=== PATIENT | male | born 1985 | race Caucasian/White ===

== ENCOUNTER 2020-07-12 13:53 | Observation (INO) | payer OTHER ==
[~2020-07-12] VITALS: Ht 175.3 cm; Wt 74.6 kg
[~2020-07-12 13:53] MED LIST: ONDN4T PO; TRM50T PO
[2020-07-12] MEDS ORDERED: LACTATED RINGERS 1,000 ML IV ONE (14:05)
[2020-07-12 14:26] LABS: BASOPHILS % (AUTO) 0 % (0-10); EOSINOPHILS % (AUTO) 0 % (0-10); HEMATOCRIT 44 % (40-54); HEMOGLOBIN 15.2 G/DL (13.3-17.7); LYMPHOCYTES # (AUTO) 1.6 X 10^3 (1.0-4.0); LYMPHOCYTES % (AUTO) 11 % (12-44); MEAN CORPUSCULAR HEMOGLOBIN 30 PG (25-34); MEAN CORPUSCULAR HGB CONC 35 G/DL (32-36); MEAN CORPUSCULAR VOLUME 85 FL (80-99); MEAN PLATELET VOLUME 9.8 FL (7.4-10.4); MONOCYTES # (AUTO) 1.6 X 10^3 (0.0-1.0); MONOCYTES % (AUTO) 11 % (0-12); NEUTROPHILS # (AUTO) 11.2 X 10^3 (1.8-7.8); NEUTROPHILS % (AUTO) 78 % (42-75); PLATELET COUNT 259 10^3/uL (130-400); WHITE BLOOD COUNT 14.4 10^3/uL (4.3-11.0)
[2020-07-12 14:37] LABS: ALBUMIN 4.2 GM/DL (3.2-4.5); CHLORIDE 107 MMOL/L (98-107); SODIUM 142 MMOL/L (135-145)
[2020-07-12 14:38] LABS: CALCIUM 9.1 MG/DL (8.5-10.1)
[2020-07-12 14:40] LABS: GLUCOSE 71 MG/DL (70-105)
[2020-07-12 14:41] LABS: BILIRUBIN,TOTAL 0.9 MG/DL (0.1-1.0); CARBON DIOXIDE 18 MMOL/L (21-32)
--- NOTE | 2020-07-12 14:42 | ED General ---
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 PT IS ABLE TO FOLLOW SOME COMMANDS BUT THEN FALLS ASLEEP WITH OUT STIMULATION Nursing Sepsis Screen: No Definite Risk Source of Information: Patient, EMS, Police Exam Limitations: No Limitations History of Present Illness Date Seen by Provider: Jul 12, 2020 Time Seen by Provider: 13:55 Initial Comments Here by EMS. Apparently patient has been running from the police since 7 AM this morning. He apparently was in a car rebecca and then ran from the car. EMS reports that he ran approximately 2-3 miles before finally being captured. This took several hours. At some point while running from the police he apparently ingested approximately 3 g of methamphetamine. Patient states that he chewed up the bag he had they were in and swallowed it but not the baggy. Heart rate on arrival right at 100. Patient apparently has some pseudoseizure or seizure history and syncope history. Patient reports only ingesting methamphetamine. Timing/Duration: 4-6 Hours Severity: Moderate Associated Systoms: No Chest Pain, No Cough, No Fever/Chills, No Nausea/Vomiting; Shortness of Air, Weakness Allergies and Home Medications Allergies Coded Allergies: Bupropion (Verified Allergy, Unknown, 05/13/06) Home Medications Ondansetron Hcl 4 Mg Tab, 1 TAB PO Q4H Prescribed by: ANA KILLIAN on 09/29/131751 Tramadol Hcl 50 Mg Tab, 50 MG PO Q4H Prescribed by: ANA KILLIAN on 09/29/131751 Patient Home Medication List Home Medication List Reviewed: Yes Review of Systems Review of Systems Constitutional: see HPI; No chills, No fever EENTM: no symptoms reported Respiratory: No cough, No short of breath Cardiovascular: No chest pain, No edema Gastrointestinal: No abdominal pain, No nausea, No vomiting Genitourinary: no symptoms reported Musculoskeletal: muscle pain, muscle weakness Skin: no symptoms reported Psychiatric/Neurological: Anxiety, Weakness All Other Systems Reviewed Negative Unless Noted: Yes Past Pmhfthy-Wrprex-Nsdjhl Hx Past Med/Social Hx: Reviewed Nursing Past Med/Soc Hx Patient Social History Alcohol Use: Denies Use Recreational Drug Use: Yes Drug of Choice: meth, Smoking Status: Current Everyday Smoker Type Used: Cigarettes Recent Foreign Travel: No Contact w/Someone Who Travel: No Recent Infectious Disease Expo: No Physical Abuse: No Sexual Abuse: No Mistreated: No Fear: No Past Medical History Surgeries: No Respiratory: No Cardiac: No Neurological: Yes Reproductive Disorders: No Sexually Transmitted Disease: No Gastrointestinal: No Musculoskeletal: No Endocrine: No Cancer: No Psychosocial: No Blood Disorders: No Family Medical History Reviewed Nursing Family Hx No Pertinent Family Hx Physical Exam Vital Signs Vital Signs - First Documented 07/12/20 14:03 Temp 37.2 Pulse 105 Resp 20 B/P (MAP) 125/97 (106) Pulse Ox 100 Capillary Refill : Less Than 3 Seconds Height, Weight, BMI Height: 5'10" Weight: 155lbs. oz. 70.012315eu; 26.00 BMI Method:Estimated General Appearance: No Apparent Distress, WD/WN HEENT: PERRL/EOMI, Pharynx Normal Neck: Non Tender, Supple Respiratory: Lungs Clear, No Respiratory Distress Cardiovascular: No Murmur, Tachycardia Gastrointestinal: Non Tender, Soft Extremity: Normal Range of Motion, Other (reports tenderness to the left hand intermittently then out at other times.) Neurologic/Psychiatric: Alert, Oriented x3 Skin: Warm/Dry, Other (multiple scattered superficial abrasions to the arms and legs) Progress/Results/Core Measures Suspected Sepsis Recent Fever Within 48 Hours: No Infection Criteria Present: None New/Unexplained Altered Menta: No Sepsis Screen: No Definite Risk SIRS Temperature: Pulse: 105 Respiratory Rate: 20 Laboratory Tests 07/12/20 13:57: White Blood Count 14.4H Blood Pressure 125 /97 Mean: 106 Laboratory Tests 07/12/20 13:57: Creatinine 1.30, Platelet Count 259, Total Bilirubin 0.9 Results/Orders Lab Results Laboratory Tests Test 07/12/20 13:57 07/12/20 14:57 Range/Units White Blood Count 14.4 H 4.3-11.0 10^3/uL Red Blood Count 5.13 4.35-5.85 10^6/uL Hemoglobin 15.2 13.3-17.7 G/DL Hematocrit 44 40-54 % Mean Corpuscular Volume 85 80-99 FL Mean Corpuscular Hemoglobin 30 25-34 PG Mean Corpuscular Hemoglobin Concent 35 32-36 G/DL Red Cell Distribution Width 12.4 10.0-14.5 % Platelet Count 259 130-400 10^3/uL Mean Platelet Volume 9.8 7.4-10.4 FL Neutrophils (%) (Auto) 78 H 42-75 % Lymphocytes (%) (Auto) 11 L 12-44 % Monocytes (%) (Auto) 11 0-12 % Eosinophils (%) (Auto) 0 0-10 % Basophils (%) (Auto) 0 0-10 % Neutrophils # (Auto) 11.2 H 1.8-7.8 X 10^3 Lymphocytes # (Auto) 1.6 1.0-4.0 X 10^3 Monocytes # (Auto) 1.6 H 0.0-1.0 X 10^3 Eosinophils # (Auto) 0.0 0.0-0.3 10^3/uL Basophils # (Auto) 0.0 0.0-0.1 10^3/uL Sodium Level 142 135-145 MMOL/L Potassium Level 4.0 3.6-5.0 MMOL/L Chloride Level 107 98-107 MMOL/L Carbon Dioxide Level 18 L 21-32 MMOL/L Anion Gap 17 H 5-14 MMOL/L Blood Urea Nitrogen 22 H 7-18 MG/DL Creatinine 1.30 0.60-1.30 MG/DL Estimat Glomerular Filtration Rate > 60 BUN/Creatinine Ratio 17 Glucose Level 71 70-105 MG/DL Calcium Level 9.1 8.5-10.1 MG/DL Corrected Calcium 8.9 8.5-10.1 MG/DL Total Bilirubin 0.9 0.1-1.0 MG/DL Aspartate Amino Transf (AST/SGOT) 59 H 5-34 U/L Alanine Aminotransferase (ALT/SGPT) 29 0-55 U/L Alkaline Phosphatase 72 40-136 U/L Total Creatine Kinase 3315 H 30-200 U/L Total Protein 7.0 6.4-8.2 GM/DL Albumin 4.2 3.2-4.5 GM/DL Salicylates Level < 5.0 L 5.0-20.0 MG/DL Acetaminophen Level < 10 L 10-30 UG/ML Serum Alcohol < 10 <10 MG/DL Urine Opiates Screen NEGATIVE NEGATIVE Urine Oxycodone Screen NEGATIVE NEGATIVE Urine Methadone Screen NEGATIVE NEGATIVE Urine Propoxyphene Screen NEGATIVE NEGATIVE Urine Barbiturates Screen NEGATIVE NEGATIVE Ur Tricyclic Antidepressants Screen NEGATIVE NEGATIVE Urine Phencyclidine Screen NEGATIVE NEGATIVE Urine Amphetamines Screen POSITIVE H NEGATIVE Urine Methamphetamines Screen POSITIVE H NEGATIVE Urine Benzodiazepines Screen NEGATIVE NEGATIVE Urine Cocaine Screen NEGATIVE NEGATIVE Urine Cannabinoids Screen NEGATIVE NEGATIVE My Orders Orders - MIYA GAITAN MD Acetaminophen (07/12/20 14:05) Alcohol (07/12/20 14:05) Cbc With Automated Diff (07/12/20 14:05) Comprehensive Metabolic Panel (07/12/20 14:05) Creatine Kinase (07/12/20 14:05) Drug Screen Stat (Urine) (07/12/20 14:05) Salicylate (07/12/20 14:05) Ua Culture If Indicated (07/12/20 14:05) Ed Iv/Invasive Line Start (07/12/20 14:05) Lactated Ringers (Lr 1000 Ml Iv Solution (07/12/20 14:05) Ekg Tracing (07/12/20 14:05) Chest 1 View, Ap/Pa Only (07/12/20 14:05) Abdomen/Kub 1view (07/12/20 14:05) Manual Differential (07/12/20 13:57) Chlamydia Trachomatis Urine (07/12/20 15:31) Neis Kevin Dna Urine Test (07/12/20 15:31) Ceftriaxone 1 Gram Ivp (07/12/20 15:31) Azithromycin Tablet (Zithromax Tablet) (07/12/20 15:31) Vital Signs/I&O 07/12/20 14:03 Temp 37.2 Pulse 105 Resp 20 B/P (MAP) 125/97 (106) Pulse Ox 100 Capillary Refill : Less Than 3 Seconds Blood Pressure Mean: 106 Progress Note : Progress Note Seen and evaluated on arrival by EMS. Patient is complaining of left wrist pain and right leg pain. Complains of being thirsty and very short of breath. Poison control was contacted on him previously and they are recommending monitoring for sympathomimetic effects of methamphetamine including tachycardia and hyperthermia. Supportive care indicated. IV by EMS with normal saline 1 L bolus running. I will be completed and followed by LR 1 L bolus. We will check labs and EKG. Chest x-ray and abdominal x-ray ordered do to tachycardia and concerns about swallowing methamphetamine baggies looking for foreign body. Patient reports he spit out the bags. 1525: Labs show elevated total creatinine indicating rhabdomyolysis. We will continue IV fluids and admit and monitor overnight. This was discussed with Dr. Schuster who accepts patient for admission, observation status. I did discuss this with the [employer]'s department and with e patient. They will stay to monitor. I did discuss with the patient as well and he agreed. He reports that he has purulent drainage from his penis and it staton when he urinates. GC and chlamydia urine test ordered. Rocephin 1 g IV as well as Zithromax 1 g by mouth ordered. Admit, observation status. Patient and [employer]'s department agree with plan. ECG Initial ECG Impression Date: Jul 12, 2020 Initial ECG Impression Time: 14:00 Initial ECG Rate: 98 Initial ECG Rhythm: Normal Sinus Initial ECG Comparisson: Unchanged Comment Sinus rhythm with normal axis. No evidence of ST elevation VT. Similar to previous of 01/22/14. Interpreted by me. Diagnostic Imaging Diagonstic Imaging: Xray Plain Films/CT/US/NM/MRI: chest Comments [facility] [place] NAME: LESLIE HAYNES [employer] REC#: [id number] PT STATUS: REG ER : 1985 PHYSICIAN: MIYA GAITAN MD ADMIT DATE: 07/12/20/ER Draft Date of Exam:07/12/20 CHEST 1 VIEW, AP/PA ONLY INDICATION: Tachycardia and syncope. TIME OF EXAM: 3:08 p.m. COMPARISON: No prior studies are available for comparison. FINDINGS: The heart size is normal. The pulmonary vascularity is unremarkable. The lungs are clear. No infiltrate, effusion or pneumothorax is detected. IMPRESSION: No acute cardiopulmonary process is detected. Dictated on workstation # [id number] Dict: 07/12/20 1521 Trans: 07/12/20 1526 [facility] [id number] Interpreted by: SOLE SIMONS MD Electronically signed by: Reviewed: Reviewed by Me Diagonstic Imaging: Xray Plain Films/CT/US/NM/MRI: abdomen Comments [facility] [place] NAME: LESLIE HAYNES [employer] REC#: [id number] PT STATUS: REG ER : 1985 PHYSICIAN: MIYA GAITAN MD ADMIT DATE: 07/12/20/ER Draft Date of Exam:07/12/20 ABDOMEN/KUB 1VIEW EXAMINATION: Abdomen 1 view. HISTORY: abdomen pain COMPARISON: None available. FINDINGS: There is a paucity of bowel gas, nonspecific finding. Stool is present in the rectum. No free air is seen. IMPRESSION: Paucity of bowel gas, nonspecific pattern. Dictated on workstation # [id number] Dict: 07/12/20 1521 Trans: 07/12/20 1526 [facility] [id number] Interpreted by: MADHURI AGUIAR MD Electronically signed by: Reviewed: Reviewed by Me Departure Impression Primary Impression: Rhabdomyolysis Qualified Codes: M62.82 - Rhabdomyolysis Additional Impressions: Methamphetamine abuse Sexually transmitted infection Disposition: ADMITTED INPATIENT Condition: Stable Admissions Decision to Admit Reason: Admit from ER (General) Decision to Admit/Date: Jul 12, 2020 Time/Decision to Admit Time: 15:25 Departure-Patient Inst. Referrals: OMAR EID DO (PCP/Family) Primary Care Physician Patient Instructions: ALCOHOL AND SUBSTANCE ABUSE MIYA GAITAN MD Jul 12, 2020 14:42
[2020-07-12 14:43] LABS: ALKALINE PHOSPHATASE 72 U/L (40-136); GFR ESTIMATED > 60
[2020-07-12 14:45] LABS: BUN/CREATININE RATIO 17
[2020-07-12 14:46] LABS: SALICYLATE < 5.0 MG/DL (5.0-20.0)
[2020-07-12 14:47] LABS: ALANINE AMINOTRANSFERASE 29 U/L (0-55); CREATINE KINASE 3315 U/L (30-200)
[2020-07-12 14:56] LABS: ACETAMINOPHEN < 10 UG/ML (10-30)
[2020-07-12 15:06] LABS: CLARITY,URINE SL CLOUDY; COLOR,URINE YELLOW; GLUCOSE, URINE (UA) NEGATIVE (NEGATIVE); KETONES,URINE 3+ (NEGATIVE); LEUKOCYTE ESTERASE ,URINE 2+ (NEGATIVE); NITRITE,URINE NEGATIVE (NEGATIVE); PH,URINE 6.5 (5-9); PROTEIN,URINE 1+ (NEGATIVE)
[2020-07-12 15:25] LABS: AMPHETAMINE SCREEN, URINE POSITIVE (NEGATIVE); BARBITURATE SCREEN URINE NEGATIVE (NEGATIVE); BENZODIAZEPINES SCREEN URINE NEGATIVE (NEGATIVE); CANNABINOID SCREEN, URINE NEGATIVE (NEGATIVE); COCAINE SCREEN URINE NEGATIVE (NEGATIVE); METHADONE STAT NEGATIVE (NEGATIVE); METHAMPHETAMINE SCREEN URINE S POSITIVE (NEGATIVE); OPIATE SCREEN URINE NEGATIVE (NEGATIVE); OXYCODONE STAT NEGATIVE (NEGATIVE); PROPOXYPHENE STAT NEGATIVE (NEGATIVE); TRICYCLIC ANTIDEPRESSANTS SCRE NEGATIVE (NEGATIVE)
--- NOTE | 2020-07-12 15:26 | Diagnostic Imaging Report ---
EXAMINATION: Abdomen 1 view. HISTORY: abdomen pain COMPARISON: None available. FINDINGS: There is a paucity of bowel gas, a nonspecific finding. Stool is present in the rectum. No free air is seen. IMPRESSION: Paucity of bowel gas, a nonspecific pattern. Dictated by: Dictated on workstation # [id number]
--- NOTE | 2020-07-12 15:26 | Diagnostic Imaging Report ---
INDICATION: Tachycardia and syncope. TIME OF EXAM: 3:08 p.m. COMPARISON: No prior studies are available for comparison. FINDINGS: The heart size is normal. The pulmonary vascularity is unremarkable. The lungs are clear. No infiltrate, effusion or pneumothorax is detected. IMPRESSION: No acute cardiopulmonary process is detected. Dictated by: Dictated on workstation # [id number]
[2020-07-12] MEDS ORDERED: cefTRIAXone FOR IV USE 1,000 MG in WATER (STERILE) FOR INJECTION 10 ML IV STA (15:31)
[2020-07-12] MEDS ORDERED: AZITHROMYCIN 250 MG TAB (ZITHROMAX) PO STA (15:31)
[2020-07-12 15:41] LABS: BACTERIA,URINE NEGATIVE /HPF; BILIRUBIN,URINE 1+ (NEGATIVE); WBC,URINE 50-100 /HPF
[2020-07-12 16:04] LABS: BAND NEUTROPHILS 0 %; BASOPHILS % (MANUAL) 0 %; EOSINOPHILS % (MANUAL) 0 %; LYMPHOCYTES % (MANUAL) 7 %; MONOCYTES % (MANUAL) 9 %; NEUTROPHILS % (MANUAL) 84 %; RBC MORPH NORMAL
--- NOTE | 2020-07-12 16:40 | NUR ---
LESLIE HAYNES admitted to room 427-1, with an admitting diagnosis of RHABDMYOLISIS, METH ABUSE STI, on 07/12/20 from ED via BED, accompanied by STAFF AND POLICE .LESLIE HAYNES introduced to surroundings, call light, bed controls, phone, TV, temperature control, lights, meal times, smoking policy, visitor policy, side rail policy, bathrooms and showers. Patient Rights given to patient in the handbook. LESLIE HAYNES verbalizes understanding that [facility] is not responsible for the loss or damage to any personal effects or valuables that are kept in the patients posession during their hospitalization. The following Patient Care Plans were discussed with the PATIENT: Discharge Planning, SUBSTANCE ABUSE. LESLIE HAYNES verbalizes understanding of Interdisciplinary Patient Education. Patient and/or family were informed about the Rapid Response Team and its purpose.
[2020-07-12] MEDS ORDERED: LORazepam INJ 2 MG/ML (ATIVAN) VIAL IV PRN (16:45)
[2020-07-12 16:51] VITALS: BP 116/79
[2020-07-12] MEDS: NS IV 1000 ML 1,000 ML IV SCH ×3 (17:00→22:58)
[2020-07-12] MEDS ORDERED: FLU QUADRIvalent (3YOA+) 60 mcg/0.5 ml 2020-21 (AFLURIA) IM ONE (17:00)
--- NOTE | 2020-07-12 18:30 | NUR ---
FACE FLUSHED, APPETITE GOOD, DENIES PAIN OR SOB, PATIENT HAS SCRATCHES ON BOTH ARMS AND LEGS, POLICE AT BEDSIDE, CUFFED TO BED, FREEDOM SPLINT APPLIED TO LEFT IV IN AC SPACE, PUPILS EQUAL AND REACTIVE TO LIGHT, NO TREMORS, TELEMETRY.
[2020-07-12 20:52] VITALS: BP 117/81
--- NOTE | 2020-07-12 22:14 | NUR ---
PT'S SON CALLED THIS RN AND ASKED HOW HIS FATHER WAS DOING. SON WANTED TO SPEAK WITH HIS FATHER. THIS RN ASKED THE NEW ACCOUNTS REPRESENTATIVE IN THE ROOM IF THIS WAS ALLOWED. NEW ACCOUNTS REPRESENTATIVE SAID, "UNFORTUNATELY AT THIS TIME IT ISN'T DUE TO SECURITY REASONS. HOWEVER, WHEN HE IS DISCHARGED, THE FAMILY CAN CALL THE POLICE STATION AND TALK WITH HIM THEN." THIS RN LET THE SON KNOW THE INFORMATION THAT WAS JUST GIVEN TO ME. SON ACKNOWLEDGES INFORMATION AND HANGS UP THE PHONE.
[2020-07-13 00:13] VITALS: BP 115/67
[2020-07-13] MEDS: NS IV 1000 ML 1,000 ML IV SCH ×3 (03:06→06:52)
[2020-07-13 03:17] VITALS: BP 122/72
[2020-07-13 06:15] LABS: BASOPHILS % (AUTO) 0 % (0-10); EOSINOPHILS # (AUTO) 0.2 10^3/uL (0.0-0.3); EOSINOPHILS % (AUTO) 2 % (0-10); HEMATOCRIT 42 % (40-54); HEMOGLOBIN 13.6 G/DL (13.3-17.7); LYMPHOCYTES # (AUTO) 1.4 X 10^3 (1.0-4.0); LYMPHOCYTES % (AUTO) 19 % (12-44); MEAN CORPUSCULAR HEMOGLOBIN 30 PG (25-34); MEAN CORPUSCULAR HGB CONC 33 G/DL (32-36); MEAN CORPUSCULAR VOLUME 91 FL (80-99); MONOCYTES # (AUTO) 0.9 X 10^3 (0.0-1.0); MONOCYTES % (AUTO) 11 % (0-12); NEUTROPHILS # (AUTO) 5.1 X 10^3 (1.8-7.8); NEUTROPHILS % (AUTO) 67 % (42-75); PLATELET COUNT 164 10^3/uL (130-400); WHITE BLOOD COUNT 7.6 10^3/uL (4.3-11.0)
[2020-07-13 06:25] LABS: ALBUMIN 3.3 GM/DL (3.2-4.5); CHLORIDE 111 MMOL/L (98-107); SODIUM 139 MMOL/L (135-145)
[2020-07-13 06:26] LABS: CALCIUM 7.7 MG/DL (8.5-10.1)
[2020-07-13 06:27] LABS: GLUCOSE 91 MG/DL (70-105); TOTAL PROTEIN 5.4 GM/DL (6.4-8.2)
[2020-07-13 06:28] LABS: CARBON DIOXIDE 19 MMOL/L (21-32)
[2020-07-13 06:29] LABS: BILIRUBIN,TOTAL 0.7 MG/DL (0.1-1.0)
[2020-07-13 06:31] LABS: ALKALINE PHOSPHATASE 57 U/L (40-136); CREATININE SERUM 0.83 MG/DL (0.60-1.30); GFR ESTIMATED > 60
[2020-07-13 06:32] LABS: BUN/CREATININE RATIO 18
[2020-07-13 06:34] LABS: ALANINE AMINOTRANSFERASE 27 U/L (0-55); CREATINE KINASE 2498 U/L (30-200)
[2020-07-13 08:00] VITALS: BP 135/77
--- NOTE | 2020-07-13 08:25 | NUR ---
THIS RN HEARD SCREAMING COMING FROM ROOM 427-1 WHERE THIS PATIENT WAS NO LONGER RESTRAINED AND OFFICER ONE STAFF MEMBER (Lazarus De La Rosa pcct) WERE IN THIS ROOM HAVING AN ALTERCATION WITH THE PATIENT AFTER RETURNING FORM THE BATHROOM IN HIS ROOM. THIS RN WITNESSED THE PATIENT CHEWING ON A GREEN BAGGY HE HAD REMOVED FROM THE BED AND PLACED IT IN HIS MOUTH. THIS PATIENT DID FINALLY SPIT THE BAGGIES FROM HIS MOUTH ONTO THE FLOOR, WHERE SHANITA TRACEY PICKED THE BAGGIES UP AND PLACED THEM OVER BY THE SINK. PATIENT WAS THEN RESTRAINED AND SHACKLED TO THE BED BY THE Dolores MORALES OFFICER THAT WAS ASSIGNED TO THIS PATIENT. THE PATIENT REPORTS INGESTING APPROXIMATELY 3 GRAMS OF WHITE POWDER SUBSTANCE. 0855 PATIENT BECAME SWEATY AND STARTED TO DISPLAY SEIZURE LIKE ACTIVITY WHICH INCLUDED HIM STIFFENING HIS ENTIRE BODY AND HIS EYES ROLLING INTO HIS HEAD. DR. TREVINO AT BEDSIDE WHILE PATIENT WAS HAVE SEIZURE LIKE ACTIVITY. ATIVAN GIVEN PER PROTOCOL. PATIENT RESTING IN BED THIS TIME EASILY AROUSED BY THIS RN. [facility] CONTINUES TO SIT WITH PATIENT 1:1 IN ROOM 427-1 PATIENT HAS BEEN ON CONTINUOUS MONITOR FOR HIS HEART RATE, DUE TO METH CONSUMPTION. THIS RN CALLED ICU TO CHECK WITH KRISHNA VARMA TECH TO CHECK HIS HEART RATE PRIOR, DURING AND AFTER THE INGESTION AND THE READING ARE FOLLOWS: [id number] 0835-HR 130 [id number] 113 0900-HR 106 THIS RN WILL CONT TO MONITOR THIS PATIENT THROUGHOUT THE REMAINDER OF HIS STAY, UNTIL HE IS DISCHARGED THIS A.M. PER DR. TREVINO'S ORDERS.
--- NOTE | 2020-07-13 12:12 | Discharge Summary ---
Discharge Summary Hospital Course Was the Problem List Reviewed?: Yes Problems/Dx: (1) Methamphetamine abuse Status: Acute (2) Rhabdomyolysis Status: Acute Qualifiers: Qualified Codes: M62.82 - Rhabdomyolysis (3) Acute kidney injury Status: Acute (4) Pseudoseizure Status: Acute Hospital Course Date of Admission: Jul 12, 2020 at 15:42 Admission Diagnosis : methamphetamine intoxication Family Physician/Provider: Flo Chau DO Date of Discharge: 07/13/20 Discharge Diagnosis: methamphetamine intoxication, rhabdomyolysis, acute kidney injury, pseudoseizure Hospital Course: Carlos Coates is a 35-year-old male who was admitted with acute methamphetamine intoxication. He was apprehended by law-enforcement this morning after a prolonged foot rebecca. He was handcuffed to his hospital bed with the police at his bedside. He reportedly ingested some methamphetamine to dispose of evidence. There was concern for rhabdomyolysis with elevated CK, but this tren ded down the following morning. The rest of his labs were unremarkable. Apparently he had some more bags of methamphetamine which he attempted to ingest while in the hospital. The bags were obtained from his mouth and still had methamphetamine inside of them. He became belligerent and he was tased by police. Later, he began having seizure-like activity. He has a history of ps eudoseizures. His seizure-like activity ceased as soon as his nurse injected normal saline to flush his line. There is no postictal state. He was answering questions appropriately. He was medically stable and discharged into the custody of police. Labs and Pending Lab Test: Laboratory Tests 07/12/20 13:57: White Blood Count 14.4H, Red Blood Count 5.13, Hemoglobin 15.2, Hematocrit 44, Mean Corpuscular Volume 85, Mean Corpuscular Hemoglobin 30, Mean Corpuscular Hemoglobin Concent 35, Red Cell Distribution Width 12.4, Platelet Count 259, Mean Platelet Volume 9.8, Neutrophils (%) (Auto) 78H, Lymphocytes (%) (Auto) 11L , Monocytes (%) (Auto) 11, Eosinophils (%) (Auto) 0, Basophils (%) (Auto) 0, Neutrophils # (Auto) 11.2H, Lymphocytes # (Auto) 1.6, Monocytes # (Auto) 1.6H, Eosinophils # (Auto) 0.0, Basophils # (Auto) 0.0, Neutrophils % (Manual) 84, Lymphocytes % (Manual) 7, Monocytes % (Manual) 9, Eosinophils % (Manual) 0, Basophils % (Manual) 0, Band Neutrophils 0, Blood Morphology Comment NORMAL, Sodium Level 142, Potassium Level 4.0, Chloride Level 107, Carbon Dioxide Level 18L, Anion Gap 17H, Blood Urea Nitrogen 22H, Creatinine 1.30, Estimat Glomerular Filtration Rate > 60, BUN/Creatinine Ratio 17, Glucose Level 71, Calcium Level 9.1, Corrected Calcium 8.9, Total Bilirubin 0.9, Aspartate Amino Transf (AST/SGOT) 59H, Alanine Aminotransferase (ALT/SGPT) 29, Alkaline Phosphatase 72, Total Creatine Kinase 3315H, Total Protein 7.0, Albumin 4.2, Salicylates Level < 5.0L, Acetaminophen Level < 10L, Serum Alcohol < 10 07/12/20 14:57: Urine Color YELLOW, Urine Clarity SL CLOUDY, Urine pH 6.5, Urine Specific Gra vity 1.020, Urine Protein 1+H, Urine Glucose (UA) NEGATIVE, Urine Ketones 3+H, Urine Nitrite NEGATIVE, Urine Bilirubin 1+H, Urine Urobilinogen 0.2, Urine Leukocyte Esterase 2+H, Urine RBC (Auto) 2+H, Urine RBC 2-5H, Urine WBC 50-100H, Urine Squamous Epithelial Cells NONE, Urine Crystals NONE, Urine Bacteria NEGATIVE, Urine Casts NONE, Urine Mucus NEGATIVE, Urine Culture Indicated YES, Urine Opiates Screen NEGATIVE, Urine Oxycodone Screen NEGATIVE, Urine Methadone Screen NEGATIVE, Urine Propoxyphene Screen NEGATIVE, Urine Barbiturates Screen NEGATIVE, Ur Tricyclic Antidepressants Screen NEGATIVE, Urine Phencyclidine Screen NEGATIVE, Urine Amphetamines Screen POSITIVEH, Urine Methamphetamines Screen POSITIVEH, Urine Benzodiazepines Screen NEGATIVE, Urine Cocaine Screen NEGATIVE, Urine Cannabinoids Screen NEGATIVE, Urine Chlamydia trachomatis RNA [Pending], Urine Neisseria gonorrhoeae RNA [Pending] 07/13/20 06:06: White Blood Count 7.6, Red Blood Count 4.59, Hemoglobin 13.6, Hematocrit 42, Mean Corpuscular Volume 91, Mean Corpuscular Hemoglobin 30, Mean Corpuscular Hemoglobin Concent 33, Red Cell Distribution Width 12.9, Platelet Count 164, Mean Platelet Volume 10.0, Neutrophils (%) (Auto) 67, Lymphocytes (%) (Auto) 19, Monocytes (%) (Auto) 11, Eosinophils (%) (Auto) 2, Basophils (%) (Auto) 0, Neutrophils # (Auto) 5.1, Lymphocytes # (Auto) 1.4, Monocytes # (Auto) 0.9, Eosinophils # (Auto) 0.2, Basophils # (Auto) 0.0, Sodium Level 139, Potassium Level 4.0, Chloride Level 111H, Carbon Dioxide Level 19L, Anion Gap 9, Blood Urea Nitrogen 15, Creatinine 0.83, Estimat Glomerular Filtration Rate > 60, BUN/Creatinine Ratio 18, Glucose Level 91, Calcium Level 7.7L, Corrected Calcium 8.3L, Total Bilirubin 0.7, Aspartate Amino Transf (AST/SGOT) 55H, Alanine Aminotransferase (ALT/SGPT) 27, Alkaline Phosphatase 57, Total Creatine Kinase 2498#H, Total Protein 5.4L, Albumin 3.3 Home Meds Active No Active Prescriptions or Reported Medications Assessment/Pt Instructions patient discharged into law-enforcement custody. Discharge Planning: <30 minutes discharge planning Discharge Instructions Discharge Diet: No Restrictions Activity as Tolerated: Yes Discharge Physical Examination Vital Signs Vital Signs Date Time Temp Pulse Resp B/P (MAP) Pulse Ox O2 Delivery O2 Flow Rate FiO2 07/13/20 08:00 36.9 106 18 135/77 (96) 99 Room Air General Appearance: No Apparent Distress, Anxious HEENT: PERRL/EOMI, Pharynx Normal Respiratory: Lungs Clear, Normal Breath Sounds, No Respiratory Distress Cardiovascular: No Edema, No Murmur, Tachycardia (regular rhythm) Gastrointestinal: Normal Bowel Sounds, Non Tender, Soft Extremity: Normal Inspection, Non Tender, No Pedal Edema Skin: Normal Color, Warm/Dry Neurologic/Psychiatric: Alert, No Motor/Sensory Deficits Allergies: Coded Allergies: bupropion (Verified Allergy, Unknown, 05/13/06) Discharge Summary Date of Admission Jul 12, 2020 at 15:42 Date of Discharge Discharge Date: Jul 13, 2020 Discharge Time: 10:00 Admission Diagnosis Acute methamphetamine intoxication Discharge Diagnosis (1) Methamphetamine intoxication Status: Acute (2) Rhabdomyolysis Status: Acute Qualifiers: Qualified Codes: M62.82 - Rhabdomyolysis (3) Acute kidney injury Status: Acute (4) Pseudoseizure Status: Acute Clinical Quality Measures DVT/VTE Risk/Contraindication: Risk Factor Score Per Nursin RFS Level Per Nursing on Admit: 1=Low/No VTE PPX WALI TREVINO MD Jul 13, 2020 12:00
== END 2020-07-13 09:25 ==
LOC: ER 13:53 → EDUNIT# 13:53 → UNDOADMOB 15:42 → 4TH 15:42 → UNDODISOB 07-13 09:25
PROVIDERS: ADMIT Family Medicine; ATTEND Family Medicine
DX: F15.129 Other stimulant abuse with intoxication, unspecified (principal); M62.82 Rhabdomyolysis; N17.9 Acute kidney failure, unspecified; F17.210 Nicotine dependence, cigarettes, uncomplicated; Z79.899 Other long term (current) drug therapy; Z88.8 Allergy status to other drugs, medicaments and biological substances
CPT/HCPCS: 71045; 74018; 80053 ×2; 80306; 81000; 82550 ×2; 85007; 85025; 85027; 87077; 87088; 87491; 87591; 93005; 96374; 99283; G0378; G0480 ×3; 36415; 80320; 80329